=== PATIENT | female | born 1990 | race Caucasian/White ===

== ENCOUNTER 2019-12-26 15:48 | Emergency (ER) | payer MEDICAID, SELFPAY ==
[2019-12-26 15:50] VITALS: BP 116/79; PULSE 116; RESP 18; TEMP 36.9; O2SAT 99; BMI 21.2
--- NOTE | 2019-12-26 16:03 | ED.VIS.GEN ---
History of Present Illness Chief Complaint: Vag Bld, Preg Informant: Patient Onset: Yesterday Narrative: Patient presents for evaluation of vaginal bleeding, nausea, and vomiting. Patient states she had a baby 4 months ago. 2 weeks ago she had a test that was faintly positive. She is been having irregular periods since the of her child. Patient states yesterday she had vaginal bleeding that was consistent with a normal period. She was passing some clots. She denies passing any tissue. Today bleeding has been lap welder, but she has had nausea and vomiting. She called her [facility] [employer] at [place] but because she felt so ill was not able to make it to the office to have a blood test done so she came to the emergency room. Patient does note that her blood type is O- and she has received RhoGam in the past. She has had 2 prior successful pregnancies. Past Medical History - Allergies and Home Meds Allergies/Adverse Reactions: Allergies cefixime [From Suprax] Allergy (Verified 12/26/19 15:53) Unknown Primary Care Physician: Care Physician,No Primary [Primary Care Provider] - Past Medical History: None Surgical History: - - C-sections Lives: With Family Review of Systems General: Denies: Chills, Fever Eyes: Denies: Visual changes - bilaterally ENT: Denies: Bilateral ear pain Cardiovascular: Denies: Chest pain, Palpitations Respiratory: Denies: Dyspnea, Cough Gastrointestinal: Reports: Abdominal pain, Nausea, Vomiting. Denies: Diarrhea Genitourinary: Denies: Dysuria Musculoskeletal: Denies: Swelling, Extremity Pain Skin: Denies: Rash Neurological: Denies: Headache Physical Exam Vital Signs/Narrative: Vital Signs Temp Pulse Resp BP Pulse Ox 12/26/19 15:50 98.5 F 116 H 18 116/79 99 Inital Vital Signs reviewed: Yes General: Well nourished, Well developed Head: Normocephalic ENT: Moist mucous membranes Neck: Supple Cardiovascular: Regular rate, Regular rhythm Respiratory: No distress, CTA bilaterally Abdomen: Soft, Tender - Mild suprapubic tenderness., Hypoactive bowel sounds. Negative for: Guarding, Rebound tenderness Extremities: Nontender Skin: Normal color, No rash Neurological: Alert, Oriented x3 Psychological: Normal affect Diagnostic/Tx/Re-eval Impressions Obstetrics Ultrasound 12/26/19 17:23 IMPRESSION: Single live intrauterine at 6 weeks, 5 days by current ultrasound with SILVESTRE of 08/15/2020. Heart rate at 151 bpm. There is a possible subchorionic hemorrhage or hematoma adjacent to the gestational sac measuring 4.7 x 4.7 x 1.1 cm, follow-up recommended to ensure resolution, patient is 4 months . Simple right ovarian cyst Minimal free fluid in the cul-de-sac Electronically Signed: Clay Schwarz MD at 19:07 EST , Service support , 12/26/19 17:23 Transvaginal w/Preg US [US] Stat Laboratory Results 12/26/19 12/26/19 12/26/19 16:23 16:23 16:23 WBC 8.9 RBC 4.42 Hgb 12.3 Hct 38.6 MCV 87.3 MCH 27.8 MCHC 31.9 L RDW Std Deviation 44.4 H RDW Coeff of Federico 13.8 Plt Count 224 MPV 10.5 Immature Gran % (Auto) 0.200 Neut % (Auto) 88.2 H Lymph % (Auto) 7.3 L [place] % (Auto) 3.9 Eos % (Auto) 0.2 Baso % (Auto) 0.2 Absolute Neuts (auto) 7.8 H Absolute Lymphs (auto) 0.65 L Nucleated RBC % 0 Sodium 139 Potassium 3.5 Chloride 110 H Carbon Dioxide 23.0 Anion Gap 6 BUN 7 Creatinine 0.63 Estim Creat Clear Calc 109.98 Est GFR (MDRD) Af Amer 145 Est GFR (MDRD) Non-Af 120 BUN/Creatinine Ratio 11.1 Glucose 102 Calcium 8.8 HCG, Quant 23553 H Urine Color Urine Clarity Urine pH Ur Specific [place] Urine Protein Urine Glucose (UA) Urine Ketones Urine Occult Blood Urine Nitrite Urine Bilirubin Urine Urobilinogen Ur Leukocyte Esterase Urine RBC Urine WBC Ur Squamous Epith Cells Urine Bacteria Urine Mucus Blood Type Antibody Screen 12/26/19 12/26/19 12/26/19 16:26 19:45 19:45 WBC RBC Hgb Hct MCV MCH MCHC RDW Std Deviation RDW Coeff of Federico Plt Count MPV Immature Gran % (Auto) Neut % (Auto) Lymph % (Auto) [place] % (Auto) Eos % (Auto) Baso % (Auto) Absolute Neuts (auto) Absolute Lymphs (auto) Nucleated RBC % Sodium Potassium Chloride Carbon Dioxide Anion Gap BUN Creatinine Estim Creat Clear Calc Est GFR (MDRD) Af Amer Est GFR (MDRD) Non-Af BUN/Creatinine Ratio Glucose Calcium HCG, Quant Urine Color Yellow Urine Clarity Clear Urine pH 6.0 Ur Specific [place] 1.015 Urine Protein 15 H Urine Glucose (UA) Normal Urine Ketones 150 H Urine Occult Blood 150 H Urine Nitrite Negative Urine Bilirubin Negative Urine Urobilinogen Normal Ur Leukocyte Esterase Negative Urine RBC 0-5 SEEN Urine WBC 0-5 SEEN Ur Squamous Epith Cells 0-5 SEEN Urine Bacteria 0 SEEN Urine Mucus 2+ Blood Type O NEGATIVE Antibody Screen TNP NEGATIVE - Medical Decision Making Patient was given Zofran and IV fluids. On repeat evaluation she felt much improved. Ultrasound does show fetus at 6 weeks and 5 days. Ultrasound does show possible subchorionic hemorrhage or hematoma adjacent to the gestational sac. At this time heart rate is within normal limits for age. I spoke with Dr. 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 Mcintosh. Patient is blood type O- and RhoGam is ordered. Patient is to follow-up with the [employer] office. ED Disposition - Plan for ED Patient: Disposition: Home or Assisted Living Diagnosis: Threatened miscarriage Instructions: POSSIBLE MISCARRIAGE (Threatened ) Referrals: Care Physician,No Primary [Primary Care Provider] - Additional Instructions: Follow-up with Dr Mcintosh in 5-7 days.
[2019-12-26] MEDS: Ondansetron 4 MG/2 ML Vial IV (16:25)
[2019-12-26] MEDS: 0.9% Normal Saline 1,000 ML 1000 ML IV (16:25)
[2019-12-26 16:33] LABS: Bacteria 0 SEEN /hpf (None Seen)
[2019-12-26 16:37] LABS: Color, Urine Yellow (Yellow); Glucose, Dipstick Normal (Normal); Leukocyte Esterase-Dipstick Negative /ul (Negative); Nitrite-Dipstick Negative (Negative); Occult Blood-Urine 150 /ul (Negative); Protein-Dipstick 15 mg/dl (Negative); Specific Gravity, Urine 1.015 (1.002-1.030); Urine Bilirubin Dipstick Negative (Negative); Urine Clarity Clear (Clear); Urine Urobilinogen Normal (Normal)
[2019-12-26 16:48] LABS: Absolute Lymphocyte Count 0.65 X10^3/uL (0.83-4.51); Absolute Neutrophil Count 7.8 X10^3/uL (2.0-7.7); Basophil# 0.02 X10^3/uL; Basophil% 0.2 % (0-1); Eosinophil# 0.02 X10^3/uL; Eosinophils% 0.2 % (0-5); Hematocrit 38.6 % (37-47); Hemoglobin 12.3 g/dL (12.0-15.0); Lymphocyte # 0.65 X10^3/ul (4.0); Lymphocyte % 7.3 % (19-41); Mean Corp Hgb Conc 31.9 g/dL (32-36); Mean Corpuscular Hgb 27.8 pg (27.0-32.0); Mean Corpuscular Volume 87.3 fL (81-99); Mean Platelet Vol. 10.5 fl (6.2-12.0); Monocyte# 0.35 X10^3/uL; Monocyte% 3.9 % (0-10); NRBC Flagged by Analyzer 0 % (0-5); Neutrophil # 7.81 X10^3/uL (2.7-7.7); Neutrophil % 88.2 % (47-70); Platelet Count 224 K/mm3 (150-450); RBC Distribution Width CV 13.8 % (11.6-14.6); RBC Distribution Width SD 44.4 fl (35.1-43.9); Red Blood Count 4.42 M/mm3 (4.2-5.4); White Blood Count 8.9 K/mm3 (4.4-11.0)
[2019-12-26 17:00] LABS: Anion Gap 6 (5-15); BUN 7 mg/dL (7-18); BUN/Creat Ratio 11.1 RATIO (10-20); Calcium,Total 8.8 mg/dL (8.5-10.1); Chloride 110 mmol/L (98-107); Creatinine, Serum 0.63 mg/dL (0.55-1.02); EST Glomerular Filtration Rate 120 mL/min (>60); Est Glom Filt Rate - Afr Amer 145 mL/min (>60); Estimated Creatinine Clearance 109.98 ml/min; Glucose 102 mg/dL (74-106); Potassium 3.5 mmol/L (3.5-5.1); Sodium Level 139 mmol/L (136-145)
[2019-12-26 17:01] LABS: Ketone-Dipstick 150 mg/dl (Negative)
[2019-12-26 17:04] LABS: Mucous, Urine 2+ /hpf (<or=2+); Red Blood Cells-Urine 0-5 SEEN /hpf (0-5); Squamous Epithelial Cells - UA 0-5 SEEN /hpf (5-10); White Blood Cells 0-5 SEEN /hpf (0-5)
[2019-12-26 17:21] LABS: hCG Titer Quant., Serum 49736 mIU/mL (1-3)
--- NOTE | 2019-12-26 17:23 | US_ITS ---
STUDY: FIRST TRIMESTER OBSTETRICAL ULTRASOUND REASON FOR EXAM: Female, 29 years old BLEEDING X 2 DAYS LMP: Unknown. TECHNIQUE: Transvaginal TECHNICAL QUALITY: Adequate. PRIOR ULTRASOUND: None. FINDINGS: There is visualization of a single gestational sac in a normal intrauterine position. The mean sac diameter (MSD) measures 1.86 cm, indicating an estimated gestational age (EGA) of 6 weeks, 6 days. The gestational sac shape is within normal limits. There is a visualized yolk sac. The yolk sac measures 0.27 cm. The placenta is non-visualized. There is visualization of a live embryo. The crown-rump length (CRL) measures 0.62 cm, indicating an estimated gestational age (EGA) of 6 weeks, 4 days. There is demonstrated cardiac activity with a heart rate of 144 bpm. The estimated gestation age (EGA) by US is 6 weeks, 5 days. The estimated date of delivery (SILVESTRE) by US is 08/15/2020. The uterus measures 11.7 x 7.6 x 5.1 cm. There is no demonstrated uterine fibroid. The cervix is closed. Adjacent to the gestational sac is an anechoic area with internal echoes measuring 4.7 x 4.7 x 1.1 cm which may be subchorionic hemorrhage The right ovary measures 3.0 x 3.4 x 2.6 cm. There is a simple 1.9 cm cyst The left ovary measures 2.9 x 2.2 x 1.5 cm. There is no left ovarian cyst. There is no visualized left adnexal mass or complex lesion. There is minimal fluid in the cul de sac. US/Transvaginal w/Preg US IMPRESSION: Single live intrauterine at 6 weeks, 5 days by current ultrasound with SILVESTRE of 08/15/2020. Heart rate at 151 bpm. There is a possible subchorionic hemorrhage or hematoma adjacent to the gestational sac measuring 4.7 x 4.7 x 1.1 cm, follow-up recommended to ensure resolution, patient is 4 months . Simple right ovarian cyst Minimal free fluid in the cul-de-sac Electronically Signed: Clay Schwarz MD at 19:07 EST , Service support ,
[2019-12-26] MEDS: 0.9% Normal Saline 1,000 ML 150 ML IV (17:31)
[2019-12-26 17:49] VITALS: BP 96/76; PULSE 96; RESP 16; O2SAT 99
[2019-12-26 19:00] VITALS: BP 101/68; PULSE 98; RESP 16; TEMP 36.8; O2SAT 100
[2019-12-26] MEDS: Acetaminophen 500 MG Tablet 1000 MG PO (19:57)
[2019-12-26 21:00] VITALS: BP 94/67; PULSE 98; RESP 18; TEMP 37.1; O2SAT 98
--- NOTE | 2019-12-27 05:50 | ED.DCSUM_ITS ---
- ER Visit Summary Date of Service: 12/26/19 Patient seen earlier today by Dr. Goss. She was discharged home with threatened miscarriage. She did complain complain of nausea and vomiting. Patient had called the ER after her discharge requesting prescription for Zofran. I did review the visit from earlier and will send in a prescription of Zofran for the patient. This note was generated with [employer] dictation software. It may contain incorrect words, spelling, and punctuation that were not noted in review of the chart prior to signing ED Disposition - Plan for ED Patient: Disposition: Home or Assisted Living Diagnosis: Threatened miscarriage Instructions: POSSIBLE MISCARRIAGE (Threatened ) Prescriptions: Ondansetron [Zofran Odt] 4 mg PO Q8H PRN PRN #10 tab PRN Reason: Nausea Transmission Status: Pending to [id number] Referrals: Care Physician,No Primary [Primary Care Provider] - Additional Instructions: Follow-up with Dr Mcintosh in 5-7 days.
== END 2019-12-26 21:42 | disposition home or self-care (01) ==
PROVIDERS: Emergency Provider Emergency Medicine
DX: O20.0 Threatened abortion (principal); O34.81 Maternal care for other abnormalities of pelvic organs, first trimester; N83.201 Unspecified ovarian cyst, right side; Z3A.01 Less than 8 weeks gestation of pregnancy
CPT/HCPCS: 76817; 80048; 81001; 84702; 85025; 86850; 86900; 86901; 90384; 96361; 96372; 96374; 99284; J7030; A4216; J2405; J2790

== ENCOUNTER 2022-02-07 20:26 | Emergency (ER) | payer MEDICAID, SELFPAY ==
[2022-02-07 20:27] VITALS: BP 128/98; PULSE 78; RESP 22; TEMP 36.7; O2SAT 100; BMI 25.3
--- NOTE | 2022-02-07 20:37 | ED.VIS.GI ---
HPI HPI - GI History of Present Illness Chief Complaint: Flank Pain Narrative Narrative: Patient with past medical history of previous kidney stones, the last being last year around September presents with sudden onset of right flank pain that began at 1:00 this morning, almost 19 hours ago. Pain is in her low back and mildly goes around towards the front. She tried leftover Percocet and ondansetron without full relief of her symptoms. She had urinary problems in the past but denies any gross hematuria or dysuria currently. No fevers or chills. No exacerbating or alleviating symptoms to her right flank pain. It does feel like her previous ureteral stones for which she was admitted to [facility] for [address] [facility] Medical History (Updated 02/07/22 @ 22:37 by Anderson Lucas MD) Kidney stones Migraines Home Medications ondansetron 4 mg PO Q8H PRN PRN #10 tab 12/27/19 [Rx Last Taken Unknown] ketorolac 10 mg PO TID PRN 5 Days #15 tab 02/07/22 [Rx Last Taken Unknown] oxycodone-acetaminophen [Percocet] 1 tab PO Q6H PRN 3 Days #12 tab 02/07/22 [Rx Last Taken Unknown] Allergy/AdvReac Type Severity Reaction Status Date / Time cefixime [From Suprax] Allergy Unknown Verified 12/26/19 15:53 Social History Smoking Status: Never smoker ROS ROS ED ROS Narrative Constitutional: No fever, no chills. HEENT: No sore throat. No neck pain. No loss of vision. No rhinorrhea. Cardiovascular: No chest pain. No palpitations. No pedal edema. Respiratory: No cough, no shortness of breath. Abdominal: No abdominal pain. Positive nausea. No vomiting. Genitourinary: No dysuria. No hematuria. Right flank pain with mild radiation to front. Musculoskeletal: No myalgias. No arthralgias. Neurologic: No headaches. No dizziness. No lightheadedness. Skin: No rash. No change in color. Psychiatric: No depression. No anxiety. EXAM Physical Exam Narrative Exam Narrative: Afebrile. Vital signs noted. HEENT: Normocephalic. Atraumatic. PERRL, EOMI. Neck soft and supple. No point tenderness or step off. Cardiovascular: Regular rate and rhythm. No murmurs, rubs, or gallops appreciated. Respiratory: No tachypnea. Lungs clear to auscultation bilaterally. Gastrointestinal: Abdomen soft, nontender, with normoactive bowel sounds. No rebound or guarding. Neurological: Awake. Alert. Nonfocal, nonlateralizing. Patient bent over bed/cot because cannot stand or get comfortable. Skin: No rash. Normal color. No pallor. Musculoskeletal: No pedal edema. Full range of motion extremities. Const Vital Signs: 02/07/22 20:27 Temperature 98.1 F Temperature Source Temporal Pulse Rate 78 Respiratory Rate 22 H Blood Pressure 128/98 H Blood Pressure Mean 108 Pulse Ox 100 Oxygen Delivery Method Room Air MDM MDM MDM Narrative Medical decision making narrative: Kidney stone work-up was pursued. She will initially be given morphine until she has a negative test as she states that she has not had menses since she had given to her child because she has history of irregular menses. She will also be started on normal saline at 250 mL/h. I will obtain CT imaging along with CBC and BMP and urinalysis. Her CBC shows slightly elevated white count of 11.7, hemoglobin normal at 13.6, platelet count normal at 271. Electrolyte panel shows chloride slightly elevated at 108 with a normal sodium of 138. Creatinine 1.07 with a normal GFR. Urinalysis shows no evidence of infection with 0 WBCs and negative nitrites and negative leukocytes. Serum test is negative. After morphine, she did require Toradol [address] shows a 6 mm ureterovesicular junction stone. She states her previous stone was approximately 6 mm and they did not think that she was going to pass it on her own. I discussed patient with Dr. Toure. She will be discharged with a prescription for Percocet and for Toradol. Return instructions were reviewed. She will follow up with urology. She did request an aliquot of fluids because she said that seemed to help her pass her previous stone. Disposition is discharged home in stable condition. Lab Data Attestation: I reviewed the patient's lab results. Labs: Laboratory Results - last 24 hr 02/07/22 02/07/22 02/07/22 20:43 20:53 20:53 WBC 11.7 H RBC 4.90 Hgb 13.6 Hct 41.2 MCV 84.1 MCH 27.8 MCHC 33.0 RDW Std Deviation 39.7 RDW Coeff of Federico 12.9 Plt Count 271 MPV 10.3 Immature Gran % (Auto) 0.400 Neut % (Auto) 90.5 H Lymph % (Auto) 6.8 L [place] % (Auto) 2.2 Eos % (Auto) 0.0 Baso % (Auto) 0.1 Absolute Neuts (auto) 10.6 H Absolute Lymphs (auto) 0.80 L Nucleated RBC % 0 Sodium 138 Potassium 3.7 Chloride 108 H Carbon Dioxide 24.0 Anion Gap 6 BUN 11 Creatinine 1.07 H Estim Creat Clear Calc 63.60 Est GFR (MDRD) Af Amer 77 Est GFR (MDRD) Non-Af 64 BUN/Creatinine Ratio 10.3 Glucose 132 H Calcium 9.0 Serum , Qual Urine Color Yellow Urine Clarity Clear Urine pH 6.0 Ur Specific [place] 1.015 Urine Protein 15 H Urine Glucose (UA) Normal Urine Ketones 150 A* Urine Occult Blood 10 H Urine Nitrite Negative Urine Bilirubin Negative Urine Urobilinogen Normal Ur Leukocyte Esterase Negative Urine RBC 0 SEEN Urine WBC 0 SEEN Ur Squamous Epith Cells 0-5 SEEN Urine Bacteria 0 SEEN Urine Mucus 0 SEEN 02/07/22 20:53 WBC RBC Hgb Hct MCV MCH MCHC RDW Std Deviation RDW Coeff of Federico Plt Count MPV Immature Gran % (Auto) Neut % (Auto) Lymph % (Auto) [place] % (Auto) Eos % (Auto) Baso % (Auto) Absolute Neuts (auto) Absolute Lymphs (auto) Nucleated RBC % Sodium Potassium Chloride Carbon Dioxide Anion Gap BUN Creatinine Estim Creat Clear Calc Est GFR (MDRD) Af Amer Est GFR (MDRD) Non-Af BUN/Creatinine Ratio Glucose Calcium Serum , Qual NEGATIVE Urine Color Urine Clarity Urine pH Ur Specific [place] Urine Protein Urine Glucose (UA) Urine Ketones Urine Occult Blood Urine Nitrite Urine Bilirubin Urine Urobilinogen Ur Leukocyte Esterase Urine RBC Urine WBC Ur Squamous Epith Cells Urine Bacteria Urine Mucus Radiography Diagnostic Testing: Clinical Impression(s) from Imaging Studies Abdomen/Pelvis CT 02/07/22 21:50 IMPRESSION: 1. Moderate right hydroureteronephrosis due to a 6 mm stone at the right ureterovesical junction. 2. Multiple nonobstructing stones bilateral kidneys. Electronically Signed: Garry Abdi MD at 22:14 EDT , Discharge Plan Triage Chief Complaint: Flank Pain ED Provider: Anderson Lucas Dx/Rx/DC Orders Clinical Impression: Ureterolithiasis, Ureteral colic Instructions: ED Kidney Stone w/ Colic Prescriptions: New oxycodone-acetaminophen [Percocet] 5-325 mg tablet 1 tab PO Q6H PRN (Reason: pain) 3 Days Qty: 12 RF: 0 ketorolac 10 mg tablet 10 mg PO TID PRN (Reason: pain) 5 Days Qty: 15 RF: 0 No Action ondansetron 4 MG tablet 4 mg PO Q8H PRN PRN (Reason: Nausea) Qty: 10 RF: 0 Primary Care Provider: Care Physician,No Primary Referrals: Cale Toure MD [STAFF PHYSICIAN] - 3-5 Days Care Physician,No Primary [Primary Care Provider] - Disposition Disposition: Home, Self Care
[2022-02-07 20:51] LABS: Bacteria 0 SEEN /hpf (None Seen); Mucous, Urine 0 SEEN /hpf (<or=2+); Red Blood Cells-Urine 0 SEEN /hpf (0-5); White Blood Cells 0 SEEN /hpf (0-5)
[2022-02-07] MEDS: Ondansetron 4 MG/2 ML Vial IV (20:53)
[2022-02-07] MEDS: 0.9% Normal Saline 1,000 ML 250 ML IV (20:53)
[2022-02-07] MEDS: Morphine 4 MG/ML Syringe IV (20:54)
[2022-02-07 21:00] LABS: Color, Urine Yellow (Yellow); Glucose, Dipstick Normal (Normal); Leukocyte Esterase-Dipstick Negative /ul (Negative); Nitrite-Dipstick Negative (Negative); Occult Blood-Urine 10 /ul (Negative); Protein-Dipstick 15 mg/dl (Negative); Specific Gravity, Urine 1.015 (1.002-1.030); Urine Bilirubin Dipstick Negative (Negative); Urine Clarity Clear (Clear); Urine Urobilinogen Normal (Normal)
[2022-02-07 21:02] LABS: Ketone-Dipstick 150 mg/dl (Negative)
[2022-02-07 21:06] LABS: Absolute Neutrophil Count 10.6 X10^3/uL (2.0-7.7); Basophil# 0.01 X10^3/uL; Basophil% 0.1 % (0-1); Hematocrit 41.2 % (37-47); Hemoglobin 13.6 g/dL (12.0-15.0); Lymphocyte % 6.8 % (19-41); Mean Corpuscular Hgb 27.8 pg (27.0-32.0); Mean Corpuscular Volume 84.1 fL (81-99); Mean Platelet Vol. 10.3 fl (6.2-12.0); Monocyte# 0.26 X10^3/uL; Monocyte% 2.2 % (0-10); NRBC Flagged by Analyzer 0 % (0-5); Neutrophil # 10.57 X10^3/uL (2.7-7.7); Neutrophil % 90.5 % (47-70); Platelet Count 271 K/mm3 (150-450); RBC Distribution Width CV 12.9 % (11.6-14.6); RBC Distribution Width SD 39.7 fl (35.1-43.9); White Blood Count 11.7 K/mm3 (4.4-11.0)
[2022-02-07 21:09] LABS: Squamous Epithelial Cells - UA 0-5 SEEN /hpf (5-10)
[2022-02-07 21:20] LABS: Anion Gap 6 (5-15); BUN 11 mg/dL (7-18); BUN/Creat Ratio 10.3 RATIO (10-20); Chloride 108 mmol/L (98-107); Creatinine, Serum 1.07 mg/dL (0.55-1.02); EST Glomerular Filtration Rate 64 mL/min (>60); Est Glom Filt Rate - Afr Amer 77 mL/min (>60); Glucose 132 mg/dL (74-106); Potassium 3.7 mmol/L (3.5-5.1); Sodium Level 138 mmol/L (136-145)
[2022-02-07 21:42] LABS: Internal QC Validated? YES +Cl - CLEAR BKGD; Pregnancy, Serum, hCG Quali. NEGATIVE Negative
--- NOTE | 2022-02-07 21:50 | CT_ITS ---
EXAM: CT ABDOMEN AND PELVIS WITHOUT INTRAVENOUS CONTRAST CLINICAL INDICATION: Right Flank Pain TECHNIQUE: Helically acquired images were obtained of the abdomen and pelvis without intravenous contrast. This CT exam was performed using one or more of the following dose reduction techniques: automated exposure control, adjustment of the mA and/or kV according to patient size, and/or use of iterative reconstruction technique. This report was created using [employer] report generation technology. RADIATION DOSAGE (If Required by State): CTDIvol = (6.49) mGy, DLP = (325.79) mGycm. COMPARISON: None. FINDINGS: LOWER THORAX: Unremarkable. Lung bases are clear. No cardiomegaly. No significant pericardial effusion. ABDOMEN: LIVER: Unremarkable. Homogeneous. GALLBLADDER AND BILE DUCTS: Unremarkable. No calcified gallstones. No gallbladder distention or wall edema. No intra- or extrahepatic biliary ductal dilation. PANCREAS: Unremarkable. No focal cystic mass. SPLEEN: Unremarkable. Normal size without focal cystic or solid mass. ADRENALS: Unremarkable. No nodules. KIDNEYS AND URETERS: Moderate right hydroureteronephrosis due to a 6 mm stone at the right ureterovesical junction. Multiple nonobstructing stones bilateral kidneys. Normal renal size and position. STOMACH AND BOWEL: Unremarkable. No stomach or bowel distention. No focal inflammatory change. PELVIS: APPENDIX: No evidence of acute appendicitis. BLADDER: Unremarkable. REPRODUCTIVE: Unremarkable as visualized. No mass. ABDOMEN and PELVIS: INTRAPERITONEAL SPACE: Unremarkable. No ascites or other fluid collection. No free air. BONES/JOINTS: Unremarkable. No suspicious lytic or blastic abnormality. SOFT TISSUES: Unremarkable. No discrete abdominal or pelvic wall hernia. VASCULATURE: Unremarkable. Abdominal aorta is non-dilated. LYMPH NODES: Unremarkable. No enlarged lymph nodes. CT/Abdomen/Pelvis without Cont IMPRESSION: 1. Moderate right hydroureteronephrosis due to a 6 mm stone at the right ureterovesical junction. 2. Multiple nonobstructing stones bilateral kidneys. Electronically Signed: Garry Abdi MD at 22:14 EDT ,
[2022-02-07] MEDS: Ketorolac 15 MG/ML Vial IV (22:11)
[2022-02-07 23:27] VITALS: BP 113/71; PULSE 65; RESP 16; O2SAT 99
== END 2022-02-07 23:39 | disposition home or self-care (01) ==
PROVIDERS: Emergency Provider Emergency Medicine; Visit Provider Emergency Medicine
DX: N20.1 Calculus of ureter (principal)
CPT/HCPCS: 74176; 80048; 81001; 84703; 85025; 96361; 96374; 96375; 99283; J7030; A4216; J2405

== ENCOUNTER 2023-02-21 04:00 | Emergency (ER) | payer MEDICAID, SELFPAY ==
[2023-02-21 04:01] VITALS: BP 124/90; PULSE 78; RESP 18; TEMP 36.4; O2SAT 97; BMI 27.3
--- NOTE | 2023-02-21 04:14 | CT_ITS ---
EXAM: CT ABDOMEN AND PELVIS WITHOUT INTRAVENOUS CONTRAST CLINICAL INDICATION: flank pain TECHNIQUE: Helically acquired images were obtained of the abdomen and pelvis without intravenous contrast. This CT exam was performed using one or more of the following dose reduction techniques: automated exposure control, adjustment of the mA and/or kV according to patient size, and/or use of iterative reconstruction technique. This report was created using [employer] report generation technology. RADIATION DOSE: CTDIvol = 6.58 mGy, DLP = 325.31 mGy-cm. COMPARISON: 02/07/2022. FINDINGS: LOWER THORAX: Unremarkable. Lung bases are clear. No cardiomegaly. No significant pericardial effusion. ABDOMEN: LIVER: Unremarkable. Homogeneous. GALLBLADDER AND BILE DUCTS: Unremarkable. No calcified gallstones. No gallbladder distention or wall edema. No intra- or extrahepatic biliary ductal dilation. PANCREAS: Unremarkable. No focal cystic mass. SPLEEN: Unremarkable. Normal size without focal cystic or solid mass. ADRENALS: Unremarkable. No nodules. KIDNEYS AND URETERS: Moderate right hydroureteronephrosis due to a stone measuring 6 x 5 x 7 mm in the distal right ureter just above the right ureterovesical junction. Numerous small nonobstructing calculi bilateral kidneys. Normal renal size and position. STOMACH AND BOWEL: Unremarkable. No stomach or bowel distention. No focal inflammatory change. PELVIS: APPENDIX: No evidence of acute appendicitis. BLADDER: Unremarkable. REPRODUCTIVE: Unremarkable as visualized. No mass. ABDOMEN and PELVIS: INTRAPERITONEAL SPACE: Unremarkable. No ascites or other fluid collection. No free air. BONES/JOINTS: Unremarkable. No suspicious lytic or blastic abnormality. SOFT TISSUES: Unremarkable. No discrete abdominal or pelvic wall hernia. VASCULATURE: Unremarkable. Abdominal aorta is non-dilated. LYMPH NODES: Unremarkable. No enlarged lymph nodes. CT/Abdomen/Pelvis without Cont IMPRESSION: 1. Moderate right hydroureteronephrosis due to a stone measuring 6 x 5 x 7 mm in the distal right ureter just above the right ureterovesical junction. 2. Numerous small nonobstructing calculi bilateral kidneys. Electronically Signed: Garry Abdi MD at 6:23 EDT ,
[2023-02-21] MEDS: 0.9% Normal Saline 1,000 ML 999 ML IV (04:24)
[2023-02-21] MEDS: Ketorolac 30 MG/ML Syringe IV (04:25)
[2023-02-21] MEDS: Ondansetron 4 MG/2 ML Vial IV (04:25)
[2023-02-21 04:37] LABS: Bacteria 0 SEEN /hpf (None Seen); Mucous, Urine 0 SEEN /hpf (<or=2+)
[2023-02-21 04:38] LABS: Absolute Lymphocyte Count 1.52 X10^3/uL (0.83-4.51); Absolute Neutrophil Count 8.8 X10^3/uL (2.0-7.7); Basophil# 0.03 X10^3/uL; Basophil% 0.3 % (0-1); Color, Urine Yellow (Yellow); Eosinophil# 0.02 X10^3/uL; Eosinophils% 0.2 % (0-5); Glucose, Dipstick Normal (Normal); Hematocrit 38.8 % (37-47); Hemoglobin 12.7 g/dL (12.0-15.0); Ketone-Dipstick Negative (Negative); Leukocyte Esterase-Dipstick 100 /ul (Negative); Lymphocyte # 1.52 X10^3/ul (0.83-4.51); Lymphocyte % 14.1 % (19-41); Mean Corp Hgb Conc 32.7 g/dL (32-36); Mean Corpuscular Hgb 28.4 pg (27.0-32.0); Mean Corpuscular Volume 86.8 fL (81-99); Monocyte# 0.34 X10^3/uL; Monocyte% 3.2 % (0-10); NRBC Flagged by Analyzer 0 % (0-5); Neutrophil # 8.81 X10^3/uL (2.7-7.7); Neutrophil % 81.9 % (47-70); Nitrite-Dipstick Negative (Negative); Occult Blood-Urine 150 /ul (Negative); Platelet Count 271 K/mm3 (150-450); Protein-Dipstick 15 mg/dl (Negative); RBC Distribution Width CV 11.9 % (11.6-14.6); RBC Distribution Width SD 37.8 fl (35.1-43.9); Red Blood Count 4.47 M/mm3 (4.2-5.4); Urine Bilirubin Dipstick Negative (Negative); Urine Clarity Clear (Clear); Urine Urobilinogen Normal (Normal); White Blood Count 10.8 K/mm3 (4.4-11.0)
[2023-02-21 04:42] LABS: Internal QC Validated? YES +Cl - CLEAR BKGD; Pregnancy, Urine Negative Negative
[2023-02-21 05:06] LABS: Anion Gap 6 (5-15); BUN 10 mg/dL (7-18); Calcium,Total 8.8 mg/dL (8.5-10.1); Chloride 106 mmol/L (98-107); Creatinine, Serum 0.77 mg/dL (0.55-1.02); EST Glomerular Filtration Rate 93 mL/min (>60); Est Glom Filt Rate - Afr Amer 113 mL/min (>60); Estimated Creatinine Clearance 87.57 ml/min; Glucose 125 mg/dL (74-106); Potassium 3.3 mmol/L (3.5-5.1); Sodium Level 136 mmol/L (136-145)
[2023-02-21 05:17] LABS: Red Blood Cells-Urine 0-5 SEEN /hpf (0-5); Squamous Epithelial Cells - UA 0-5 SEEN /hpf (5-10); Transitional Epithelial - Ur 0-5 SEEN /hpf (0-5); White Blood Cells 0-5 SEEN /hpf (0-5)
--- NOTE | 2023-02-21 06:45 | EX.ED.DYSGE1 ---
HPI History of Present Illness Chief Complaint: Flank Pain Narrative Narrative: Patient is a 32-year-old female with past medical history of migraine headache and kidney stone. She states that she is noted right-sided flank/abdominal pain over the last 1 to 2 days. She states that the pain is worsened this morning and that there is been no acute trauma or excessive activity. She states that she does have remote history of kidney stone and this feels similar nature and with concern for this once again comes in for evaluation. Patient denies any concern for STD or . She denies any dysuria fevers or chills. [facility] Medical History (Updated 02/21/23 @ 06:[address] Skip Adamson, DO) Kidney stones Migraines Home Medications ondansetron 4 mg disintegrating tablet 4 mg PO Q8H PRN PRN Nausea #10 tabs 12/27/19 [Rx Last Taken Unknown] ketorolac 10 mg tablet 10 mg PO TID PRN pain 5 days #15 tabs 02/07/22 [Rx Last Taken Unknown] oxycodone-acetaminophen 5 mg-325 mg tablet (Percocet) 1 tab PO Q6H PRN pain 3 days #12 tabs 02/07/22 [Rx Last Taken Unknown] ketorolac 10 mg tablet 10 mg PO 4X/DAY PRN PRN pain 5 days #20 tabs 02/21/23 [Rx Last Taken Unknown] ondansetron 4 mg disintegrating tablet 4 mg PO TID PRN nausea and vomiting #21 tabs 02/21/23 [Rx Last Taken Unknown] oxycodone-acetaminophen 5 mg-325 mg tablet (Percocet) 1 tab PO Q6H PRN pain 3 days #12 tabs 02/21/23 [Rx Last Taken Unknown] tamsulosin 0.4 mg capsule (Flomax) 0.4 mg PO DAILY #14 caps 02/21/23 [Rx Last Taken Unknown] Allergy/AdvReac Type Severity Reaction Status Date / Time cefixime [From Suprax] Allergy Unknown Verified 12/26/19 15:53 Social History Smoking Status: Never smoker ROS ROS ED Constitutional Constitutional ED: Denies chills or fever(s) ENT ENT ED: Denies sore throat Cardiovascular Cardiovascular: Denies chest pain Respiratory/Chest Respiratory/Chest: Denies cough or dyspnea Gastrointestinal Gastrointestinal: Reports abdominal pain and nausea; Denies diarrhea or vomiting Genitourinary Genitourinary ED: Reports hematuria; Denies dysuria Musculoskeletal Musculoskeletal: Reports back pain; Denies myalgias Integumentary Denies rash Neurologic Neurologic: Denies headache(s) Hematologic/Lymphatic Hematologic/Lymphatic: Denies easy bleeding or easy bruising EXAM Physical Exam Const Vital Signs: 02/21/23 04:01 02/21/23 04:01 Temperature 97.6 F L 97.6 F L Temperature Source Temporal Temporal Pulse Rate 78 78 Respiratory Rate 18 18 Blood Pressure 124/90 H 124/90 H Blood Pressure Mean 101 101 Pulse Ox 97 97 Oxygen Delivery Method Room Air Room Air Positive well nourished and well developed General Appearance ED: well developed Eyes PERRL and EOMs intact bilaterally General Eye ED: Negative for scleral icterus Neck supple Resp normal respiratory effort and clear to auscultation bilaterally Cardio regular rate and regular rhythm Rate: other Other Details: Radial pulses are plus 2 out of 4 bilaterally are equal and symmetric GI non-distended GI Narrative: There is pain on palpation in the right sided abdomen diffusely greatest in the right mid to lower abdomen without voluntary guarding or rigidity. No pulsatile mass or fluid wave Auscultation: normoactive bowel sounds Palpation: soft Back/Spine Back/Spine Narrative: Positive right CVA pain Extremity normal to inspection Neuro oriented x3 and CN's II-XII intact bilaterally Sensorium / Orientation: alert Psych mental status grossly normal Skin no rashes or lesions noted General Skin Exam: Negative for jaundice MDM MDM MDM Narrative Medical decision making narrative: Patient presented to the ER with stable vitals and in no acute distress. Her history and exam is consistent with kidney stone. Differential includes kidney stone with renal colic and hydronephrosis or hydroureter. There is also concern for pyelonephritis or pelvic inflammatory disease or possible complication. Patient could also have acute kidney injury or urosepsis. Therefore basic blood work with urine sample and a noncontrast CT were obtained. Labs showed no signs of acute kidney injury or urosepsis or changes to suggest pyelonephritis. CT scan did confirm a stone in the distal UVJ causing the patient's symptoms. However after Toradol she reported resolution of pain and as there is no signs of CINTHYA or uroseptic she does not need to be placed in the hospital and therefore can be discharged symptomatic care History & Record Review Discussion w/independent historian: Patient Lab Data Attestation: I reviewed the patient's lab results. Labs: Laboratory Results - last 24 hr 02/21/23 02/21/23 02/21/23 04:20 04:20 04:20 WBC 10.8 RBC 4.47 Hgb 12.7 Hct 38.8 MCV 86.8 MCH 28.4 MCHC 32.7 RDW Std Deviation 37.8 RDW Coeff of Federico 11.9 Plt Count 271 MPV 10.0 Immature Gran % (Auto) 0.300 Neut % (Auto) 81.9 H Lymph % (Auto) 14.1 L [place] % (Auto) 3.2 Eos % (Auto) 0.2 Baso % (Auto) 0.3 Absolute Neuts (auto) 8.8 H Absolute Lymphs (auto) 1.52 Nucleated RBC % 0 Sodium 136 Potassium 3.3 L Chloride 106 Carbon Dioxide 24.0 Anion Gap 6 BUN 10 Creatinine 0.77 Estim Creat Clear Calc 87.57 Est GFR (MDRD) Af Amer 113 Est GFR (MDRD) Non-Af 93 BUN/Creatinine Ratio 13.0 Glucose 125 H Calcium 8.8 Urine Color Yellow Urine Clarity Clear Urine pH 8.0 Ur Specific [place] 1.010 Urine Protein 15 H Urine Glucose (UA) Normal Urine Ketones Negative Urine Occult Blood 150 H Urine Nitrite Negative Urine Bilirubin Negative Urine Urobilinogen Normal Ur Leukocyte Esterase 100 H Urine RBC 0-5 SEEN Urine WBC 0-5 SEEN Ur Squamous Epith Cells 0-5 SEEN Ur Transition Epith Cell 0-5 SEEN Urine Bacteria 0 SEEN Urine Mucus 0 SEEN Urine Test Negative Radiography Diagnostic Testing: Clinical Impression(s) from Imaging Studies Abdomen/Pelvis CT 02/21/23 04:14 IMPRESSION: 1. Moderate right hydroureteronephrosis due to a stone measuring 6 x 5 x 7 mm in the distal right ureter just above the right ureterovesical junction. 2. Numerous small nonobstructing calculi bilateral kidneys. Electronically Signed: Garry Abdi MD at 6:23 EDT , Discharge Plan Triage Chief Complaint: Flank Pain ED Provider: Skip Adamson Dx/Rx/DC Orders Clinical Impression: Kidney stones, Renal colic Instructions: ED Kidney Stone w/ Colic Prescriptions: New ondansetron 4 mg tablet,disintegrating 4 mg PO TID PRN (Reason: nausea and vomiting) Qty: 21 0RF ketorolac 10 mg tablet 10 mg PO 4X/DAY PRN PRN (Reason: pain) 5 Days Qty: 20 0RF tamsulosin [Flomax] 0.4 mg capsule 0.4 mg PO DAILY Qty: 14 0RF oxycodone-acetaminophen [Percocet] 5-325 mg tablet 1 tab PO Q6H PRN (Reason: pain) 3 Days Qty: 12 0RF No Action ondansetron 4 MG tablet 4 mg PO Q8H PRN PRN (Reason: Nausea) Qty: 10 0RF oxycodone-acetaminophen [Percocet] 5-325 mg tablet 1 tab PO Q6H PRN (Reason: pain) 3 Days Qty: 12 0RF ketorolac 10 mg tablet 10 mg PO TID PRN (Reason: pain) 5 Days Qty: 15 0RF Primary Care Provider: Care Physician,No Primary Referrals: Cale Toure MD [Med Staff - Active Staff] - Care Physician,No Primary [Primary Care Provider] - Activity Restrictions/Additional Instructions: Please follow-up with urology to discuss need for possible stent or lithotripsy. If you develop a fever over 100.4 or your pain is not controlled with outpatient treatment please return the hospital for repeat evaluation Disposition Disposition: Home, Self Care Discharge Date/Time: 02/21/23 06:54
[2023-02-21 06:53] VITALS: PULSE 86; RESP 16; TEMP 36.6
== END 2023-02-21 06:54 | disposition home or self-care (01) ==
PROVIDERS: Emergency Provider Emergency Medicine; Visit Provider Emergency Medicine
DX: N13.2 Hydronephrosis with renal and ureteral calculous obstruction (principal)
CPT/HCPCS: 74176; 80048; 81001; 81025; 85025; 96361; 96374; 96375; 99283; J7030; A4216; J2405

== ENCOUNTER 2023-07-07 14:12 | Emergency (ER) | payer MEDICAID, SELFPAY ==
[2023-07-07 14:14] VITALS: BP 123/79; PULSE 80; RESP 18; TEMP -7.7; TEMP 18; O2SAT 100; BMI 27.7
--- NOTE | 2023-07-07 14:49 | EDS_ITS ---
HPI History of Present Illness Chief Complaint: Dizziness Informant: patient Narrative Narrative: Patient presents with ongoing waxing and waning symptoms since being diagnosed with Lyme disease at the end of April. Patient states in April she had tiredness and lymphadenopathy was treated for Lyme disease with doxycycline for 3 weeks. She stated did help. But ever since then including at that time she has had intermittent vertigo. She has never lost her balance or fallen. But she states if she turns quickly she will feel momentarily off balance. She is not having headaches. She also has had some back pain that is mostly just there in the morning and then resolves. No weight loss. She has had a little weight gain early on but that is resolved. No fevers or chills. She is eating and drinking normally. No numbness tingling. No vision change. No speech change. She has tried to see her primary physician but is kind of between physicians at this time. She has never seen neurologist for this. She also weaned off Zoloft about a month ago. She is not sure if this may have contributed. Certainly this can cause some symptoms also. [facility] Medical History Kidney stones Migraines Home Medications ondansetron 4 mg disintegrating tablet 4 mg PO Q8H PRN PRN Nausea #10 tabs 12/27/19 [Rx Last Taken Unknown] ketorolac 10 mg tablet 10 mg PO TID PRN pain 5 days #15 tabs 02/07/22 [Rx Last Taken Unknown] oxycodone-acetaminophen 5 mg-325 mg tablet (Percocet) 1 tab PO Q6H PRN pain 3 days #12 tabs 02/07/22 [Rx Last Taken Unknown] ketorolac 10 mg tablet 10 mg PO 4X/DAY PRN PRN pain 5 days #20 tabs 02/21/23 [Rx Last Taken Unknown] ondansetron 4 mg disintegrating tablet 4 mg PO TID PRN nausea and vomiting #21 tabs 02/21/23 [Rx Last Taken Unknown] oxycodone-acetaminophen 5 mg-325 mg tablet (Percocet) 1 tab PO Q6H PRN pain 3 days #12 tabs 02/21/23 [Rx Last Taken Unknown] tamsulosin 0.4 mg capsule (Flomax) 0.4 mg PO DAILY #14 caps 04/15/23 [Rx Last Taken Unknown] meclizine 25 mg tablet 25 mg PO 4X/DAY PRN PRN Dizziness #20 tabs 07/07/23 [Rx Last Taken Unknown] Allergy/AdvReac Type Severity Reaction Status Date / Time cefixime [From Suprax] Allergy Unknown Verified 07/07/23 14:14 Social History Smoking Status: Never smoker ROS ROS ED Constitutional Constitutional ED: Denies chills, fever(s), subjective, sweats or weight loss Eyes Eyes: Denies blurry vision, change in vision or diplopia ENT ENT ED: Reports other Details: No change in hearing. ; Denies ear pain, rhinorrhea or sore throat Cardiovascular Cardiovascular: Denies chest pain or palpitations Respiratory/Chest Respiratory/Chest: Denies cough or dyspnea Gastrointestinal Gastrointestinal: Denies abdominal pain, constipation, diarrhea, nausea or vomiting Genitourinary Genitourinary ED: Denies dysuria or urinary frequency Musculoskeletal Musculoskeletal: Reports arthralgias and back pain; Denies myalgias or neck pain Integumentary Denies abscess or rash Neurologic Neurologic: Reports other Details: See history of present illness. ; Denies headache(s), paresthesias or weakness Psychiatric Psychiatric: Reports anxiety Endocrine Endocrinology: Denies polydipsia or polyuria Hematologic/Lymphatic Hematologic/Lymphatic: Denies easy bleeding or easy bruising Allergic/Immunologic Allergic/Immunologic ED: Denies urticaria EXAM Physical Exam Narrative Exam Narrative: CONSTITUTIONAL: Patient is nontoxic in appearance. The patient looks comfortable. HEENT: No notable trauma. Mucous membranes moist. No sinus tenderness. No indication of pain with swallowing. Tympanic membranes are clear bilaterally. No redness or fluid. No thrush. Swallowing mechanism is normal. Voice is normal. EYES: No conjunctival injection. No proptosis. No limitation of range of motion. Pupillary response is normal. Neck shows no lymphadenopathy. CARDIOVASCULAR: Regular rate. Regular rhythm. No notable murmur. No JVD. RESPIRATORY: No respiratory distress. Breathing is unlabored. No wheezes. No rhonchi. No rales. No pain with a deep breath. GASTROINTESTINAL: Not distended. Bowel sounds are normal. No tenderness. No guarding. No rebound. No palpable mass. No bruit. GENITOURINARY: No tenderness over the bladder. No CVA tenderness. MUSCULOSKELETAL: Atraumatic. No peripheral edema. No cord. No tenderness along the deep venous system. No asymmetry. Although she does get some pain in the mid back more on the right its not painful now and its not tender. I feel no lesions or mass. No percussion tenderness. No skin change at all. NEUROLOGICAL: Patient is alert and appropriate. No focal deficit noted. Coordination is normal. No nystagmus. No weakness. Exam is really normal. Gait is normal. SKIN: No noted rashes. No diaphoresis. PSYCHIATRIC: Patient is calm. Mood is appropriate. Const Vital Signs: 07/07/23 14:14 07/07/23 14:21 Temperature 18 F L Temperature Source Temporal Pulse Rate 80 Respiratory Rate 18 Respiratory Effort Normal Non-Labored Respiratory Pattern Normal Blood Pressure 123/79 H Blood Pressure Mean 93 Pulse Ox 100 Oxygen Delivery Method Room Air MDM MDM MDM Narrative Medical decision making narrative: Patient CBC is normal. Patient's electrolytes are normal other than minimal decrease of potassium and minimal elevation of chloride. But I do not think these minor variations are causing her symptoms. Kidney function is preserved. Glucose is normal at 101. Liver function test are normal. TSH is normal Lyme studies were sent off. 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 I think we can get the patient home. She has been having symptoms for months. They are not currently bad. Some of the symptoms may have been made worse by withdrawal from Zoloft but she had symptoms prior to that. I recommend she not restart it. We will write for meclizine. I will give her number of neurologist to follow-up with also. Lab Data Attestation: I reviewed the patient's lab results. Labs: Laboratory Results - last 24 hr 07/07/23 15:10 WBC 4.7 RBC 4.38 Hgb 13.0 Hct 38.4 MCV 87.7 MCH 29.7 MCHC 33.9 RDW Std Deviation 39.6 RDW Coeff of Federico 12.3 Plt Count 162 MPV 9.3 Immature Gran % (Auto) 0.200 Neut % (Auto) 45.8 L Lymph % (Auto) 45.3 H [place] % (Auto) 6.8 Eos % (Auto) 1.7 Baso % (Auto) 0.2 Absolute Neuts (auto) 2.1 Absolute Lymphs (auto) 2.12 Nucleated RBC % 0 Sodium 141 Potassium 3.4 L Chloride 108 H Carbon Dioxide 28.0 Anion Gap 5 BUN 11 Creatinine 0.74 Estim Creat Clear Calc 91.12 Est GFR (MDRD) Af Amer 118 Est GFR (MDRD) Non-Af 97 BUN/Creatinine Ratio 14.9 Glucose 101 Calcium 8.8 Total Bilirubin 0.70 AST 13 L ALT 28 Alkaline Phosphatase 81 Total Protein 7.3 Albumin 3.7 Globulin 3.6 Albumin/Globulin Ratio 1.0 TSH 1.02 Discharge Plan Triage Chief Complaint: Dizziness ED Provider: [facility] [place] Dx/Rx/DC Orders Clinical Impression: Hx of Lyme disease, Episodic recurrent vertigo Instructions: ED Vertigo, Unspecified Prescriptions: New meclizine [meclizine] 25 mg tablet 25 mg PO 4X/DAY PRN PRN (Reason: Dizziness) Qty: 20 0RF No Action ondansetron 4 MG tablet 4 mg PO Q8H PRN PRN (Reason: Nausea) Qty: 10 0RF oxycodone-acetaminophen [Percocet] 5-325 mg tablet 1 tab PO Q6H PRN (Reason: pain) 3 Days Qty: 12 0RF ketorolac 10 mg tablet 10 mg PO TID PRN (Reason: pain) 5 Days Qty: 15 0RF ondansetron 4 mg tablet,disintegrating 4 mg PO TID PRN (Reason: nausea and vomiting) Qty: 21 0RF ketorolac 10 mg tablet 10 mg PO 4X/DAY PRN PRN (Reason: pain) 5 Days Qty: 20 0RF tamsulosin [Flomax] 0.4 mg capsule 0.4 mg PO DAILY Qty: 14 0RF oxycodone-acetaminophen [Percocet] 5-325 mg tablet 1 tab PO Q6H PRN (Reason: pain) 3 Days Qty: 12 0RF Primary Care Provider: Care Physician,No Primary Referrals: Сергей Garcia MD [Non-Staff -Ordering Privileges] - As soon as possible Care Physician,No Primary [Primary Care Provider] - Disposition Disposition: Home, Self Care
[2023-07-07 15:20] LABS: Absolute Lymphocyte Count 2.12 X10^3/uL (0.83-4.51); Absolute Neutrophil Count 2.1 X10^3/uL (2.0-7.7); Basophil# 0.01 X10^3/uL; Basophil% 0.2 % (0-1); Eosinophil# 0.08 X10^3/uL; Eosinophils% 1.7 % (0-5); Hematocrit 38.4 % (37-47); Lymphocyte # 2.12 X10^3/ul (0.83-4.51); Lymphocyte % 45.3 % (19-41); Mean Corp Hgb Conc 33.9 g/dL (32-36); Mean Corpuscular Hgb 29.7 pg (27.0-32.0); Mean Corpuscular Volume 87.7 fL (81-99); Mean Platelet Vol. 9.3 fl (6.2-12.0); Monocyte# 0.32 X10^3/uL; Monocyte% 6.8 % (0-10); NRBC Flagged by Analyzer 0 % (0-5); Neutrophil # 2.14 X10^3/uL (2.7-7.7); Neutrophil % 45.8 % (47-70); Platelet Count 162 K/mm3 (150-450); RBC Distribution Width CV 12.3 % (11.6-14.6); RBC Distribution Width SD 39.6 fl (35.1-43.9); Red Blood Count 4.38 M/mm3 (4.2-5.4); White Blood Count 4.7 K/mm3 (4.4-11.0)
[2023-07-07 15:45] LABS: AST(SGOT) 13 U/L (15-37); Alanine Aminotransfer ALT/SGPT 28 U/L (13-56); Albumin, Serum 3.7 g/dL (3.2-5.0); Alkaline Phosphatase 81 U/L (45-117); Anion Gap 5 (5-15); BUN 11 mg/dL (7-18); BUN/Creat Ratio 14.9 RATIO (10-20); Calcium,Total 8.8 mg/dL (8.5-10.1); Chloride 108 mmol/L (98-107); Creatinine, Serum 0.74 mg/dL (0.55-1.02); EST Glomerular Filtration Rate 97 mL/min (>60); Est Glom Filt Rate - Afr Amer 118 mL/min (>60); Estimated Creatinine Clearance 91.12 ml/min; Globulin 3.6 g/dL (2.2-4.2); Glucose 101 mg/dL (74-106); Potassium 3.4 mmol/L (3.5-5.1); Protein, Total 7.3 g/dL (6.4-8.2); Sodium Level 141 mmol/L (136-145); Thyroid Stim Hormone (TSH) 1.02 uIU/mL (0.358-3.74)
[2023-07-09 10:09] LABS: Lyme Scn Total Ab w/Rflx Negative (Negative)
== END 2023-07-07 16:27 | disposition home or self-care (01) ==
PROVIDERS: Emergency Provider Emergency Medicine; Visit Provider Emergency Medicine
DX: R42 Dizziness and giddiness (principal); Z86.19 Personal history of other infectious and parasitic diseases
CPT/HCPCS: 80053; 84443; 85025; 86618; 99282; A4216